=== PATIENT | male | born 1995 | race Caucasian/White ===

== ENCOUNTER 2016-09-29 21:16 | Emergency (ER) | payer OTHER ==
[~2016-09-29] VITALS: Ht 175.3 cm; Wt 78.0 kg
[2016-09-29] MEDS ORDERED: MOTR200T44 PO (21:27)
[2016-09-29] MEDS ORDERED: ADACEL/BOOSTRIX VACCINE (DIPHTH/PERTUSS/ACELL/TETANUS)0.5ML SYR (90715) IM ONE (22:00)
[2016-09-29] MEDS ORDERED: ACETAMINOPHEN 325 MG TAB PO ONE (22:00)
[2016-09-29] MEDS ORDERED: KEFL500C7 PO (22:27)
[2016-09-29] MEDS ORDERED: CEPHALEXIN 500 MG CAP PO ONE (22:30)
[2016-09-29 22:36] VITALS: BP 142/95
--- NOTE | 2016-09-30 07:40 | REP ---
Clinical: Trauma. Crush injury. Technique: AP, lateral, bilateral oblique views of the left first digit. Findings: There is a small fracture involving the terminal tuft of the distal phalanx with overlying soft tissue swelling. No subcutaneous emphysema or radiodense foreign body. Impression: Small nondisplaced fracture involving the terminal tuft of the distal phalanx. Signed by Luke Gastelum MD 09/30/2016 07:32 A
== END 2016-09-29 22:43 | disposition home or self-care (01) ==
LOC: M ED 22:02
DX: S62.525A Nondisplaced fracture of distal phalanx of left thumb, initial encounter for closed fracture (principal); S60.312A Abrasion of left thumb, initial encounter; W23.1XXA Caught, crushed, jammed, or pinched between stationary objects, initial encounter; Y92.149 Unspecified place in prison as the place of occurrence of the external cause; Y93.B3 Activity, free weights; Y99.9 Unspecified external cause status; J45.909 Unspecified asthma, uncomplicated; F17.200 Nicotine dependence, unspecified, uncomplicated; Z91.030 Bee allergy status

== ENCOUNTER 2017-05-10 21:03 | Emergency (ER) | payer OTHER | END 2017-05-10 22:13 | disposition home or self-care (01) | LOC: M ED 21:03 | DX: S63.612A Unspecified sprain of right middle finger, initial encounter (principal); W23.1XXA Caught, crushed, jammed, or pinched between stationary objects, initial encounter; Y92.148 Other place in prison as the place of occurrence of the external cause; Y93.67 Activity, basketball; Y99.8 Other external cause status; J45.909 Unspecified asthma, uncomplicated; Z91.030 Bee allergy status; F17.210 Nicotine dependence, cigarettes, uncomplicated | CPT/HCPCS: 73140 ==

== ENCOUNTER → 2017-05-17 | Outpatient (CLI) | payer OTHER | LOC: M RAD 08:34 | DX: S69.91XA Unspecified injury of right wrist, hand and finger(s), initial encounter (principal); X58.XXXA Exposure to other specified factors, initial encounter; Y92.89 Other specified places as the place of occurrence of the external cause; Y93.89 Activity, other specified; Y99.8 Other external cause status | CPT/HCPCS: 73130 ==